=== PATIENT | male | born 1965 | race Caucasian/White ===

== ENCOUNTER → 2020-08-31 | Outpatient (CLI) | payer OTHER ==
[~2020-08-31] MED LIST: ASPI81CH33 PO; ATOR1TAB21 PO; BENAZAPRIL PO; OXYC-1 PO; ROSU40TA4 PO; VITA50005 PO
--- NOTE | 2020-08-31 16:16 | REPVR ---
PROCEDURE INFORMATION: Exam: MR Lumbar Spine Without Contrast Exam date and time: 08/31/2020 3:46 PM Age: 55 years old Clinical indication: Low back pain TECHNIQUE: Imaging protocol: Multiplanar magnetic resonance images of the lumbar spine without intravenous contrast. COMPARISON: No relevant prior studies available. FINDINGS: Vertebral body heights are maintained. Multilevel mild and Modic type 1 edematous degenerative endplate change, most pronounced at L5-S1. No MR evidence of acute lumbar spine fracture. No cord compression. No abnormal cord signal. Conus medullaris terminates at the L1 level. Paravertebral soft tissues are unremarkable. L1-L2: No significant canal or foraminal narrowing. L2-L3: No significant canal or foraminal narrowing. L3-L4: Broad-based disc bulge without significant canal or foraminal narrowing. L4-L5: Small right paracentral disc protrusion and facet hypertrophy cause moderate bilateral foraminal narrowing. No significant canal narrowing L5-S1: Central disc protrusion and facet hypertrophy cause mild canal narrowing and [id number] bilateral foraminal narrowing. IMPRESSION: Multilevel spondylotic changes of the lumbar spine, as detailed above. Electronically signed by: Waldemar Locke On 08/31/2020 16:15:55 PM
== END ==
LOC: M RAD 14:20
PROVIDERS: ATTEND Physician Assistant Medical
DX: M51.26 Other intervertebral disc displacement, lumbar region (principal)

== ENCOUNTER 2020-09-03 14:42 | Inpatient (IN) | payer OTHER ==
[~2020-09-03] VITALS: Ht 175.3 cm; Wt 96.1 kg
[~2020-09-03 14:42] MED LIST changes: -ASPI81CH33 PO; -ATOR1TAB21 PO; -ROSU40TA4 PO; -VITA50005 PO
--- NOTE | 2020-09-03 15:10 | REP ---
INDICATION: FACIAL DROOP, RIGHT SIDED WEAKNESS. COMPARISON: Comparison is a maxillofacial CT study from May 24, 2014.. TECHNIQUE: Helical scanning is acquired. 5 mm axial images were reformatted. Coronal MPR images were generated. FINDINGS: Bone window settings demonstrate intact bony calvarium. The digital care director rn views are unremarkable. There is moderate mucosal thickening affecting the ethmoid sinuses bilaterally. There is mild vascular calcification in the carotid siphons bilaterally. On soft tissue window settings, there is decreased parenchymal density in loss of gibbs-white differentiation and the left parietal lobe and the left posterior frontal lobe. There is some involvement of the temporal lobe as well,. There is low-density in the basal ganglia on the left. This is consistent with a left middle cerebral artery territory infarct. There is more well-defined area of low density in the left basal ganglia and in the periventricular white matter of the right frontal lobe consistent with a lacunar infarcts. A tiny lacunar infarct is suspected in the right basal ganglia. These findings are all new when compared with the May 24, [address] images. There is no evidence of intracranial hemorrhage. No extra-axial fluid collection is seen. No mass or midline shift is observed. IMPRESSION: There is a subacute infarct in the distribution of the left middle cerebral artery territory involving left posterior frontal, left temporal, and left parietal lobes. There are old bilateral basal ganglia lacunar infarcts. A small periventricular old infarct is seen in the right frontal lobe. Mild vascular calcification is observed. There is no evidence of intracranial hemorrhage or extra-axial fluid collection.. <Electronically signed by Gabriel Mallory > 09/03/20 [id number]
--- NOTE | 2020-09-03 15:46 | REP ---
INDICATION: CVA. COMPARISON: 01/25/2013. TECHNIQUE: Single portable AP view of the chest was performed. FINDINGS: There is mild bibasilar fibro atelectatic change with no evidence of acute infiltrate. The heart and mediastinum are unremarkable. Benign bone island is seen in the proximal left humerus. IMPRESSION: No acute pulmonary disease. <Electronically signed by Jayme Brice > 09/03/20 [id number]
[2020-09-03] MEDS ORDERED: ISOVUE-370 76% 100ML VIAL As Ordered ONE (16:44)
[2020-09-03 16:52] LABS: BASO # 0.1 10^3/uL (0.0-0.2); BASO % 0.4 % (0.0-1.0); EOS # 0.1 10^3/uL (0.0-0.5); EOS % 0.7 % (0.0-3.0); HEMATOCRIT 48.9 % (42.0-52.0); HEMOGLOBIN 16.2 g/dl (13.5-17.5); LYMPH # 2.1 10^3/uL (1.5-5.0); LYMPH % 13.4 % (24.0-44.0); MEAN CORPUSCULAR HEMOGLOBIN 31.2 pg (27.0-33.0); MEAN CORPUSCULAR HGB CONC 33.1 g/dl (32.0-36.5); MEAN CORPUSCULAR VOLUME 94.2 fl (80.0-96.0); MONO # 1.4 10^3/uL (0.0-0.8); MONO % 8.7 % (2.0-8.0); NEUTROPHILS # 12.2 10^3/uL (1.5-8.5); NEUTROPHILS % 76.4 % (36.0-66.0); PLATELET COUNT, AUTOMATED 343 10^3/uL (150-450); RED BLOOD COUNT 5.19 10^6/uL (4.30-6.10); WHITE BLOOD COUNT 15.9 10^3/uL (4.0-10.0)
[2020-09-03 17:22] LABS: CK-MB VALUE MASS < 1.0 NG/ML (<3.6); CPK CREATINE PHOSPHOKINASE 73 U/L (39-308); MB/CK RELATIVE INDEX 1.37 (< OR =4); TROPONIN I < 0.02 NG/ML (< 0.10)
[2020-09-03 17:26] LABS: INR 1.09; PARTIAL THROMBOPLASTIN TIME 30.3 SECONDS (24.2-38.5); PROTHROMBIN TIME 14.3 SECONDS (12.5-14.3)
--- NOTE | 2020-09-03 17:45 | REPVR ---
PROCEDURE INFORMATION: Exam: CT Angiography Head With Contrast, Arteriography Exam date and time: 09/03/2020 3:40 PM Age: 55 years old Clinical indication: Weakness; Additional info: Right sided facial droop; Further evaluate lmca TECHNIQUE: Imaging protocol: Computed tomography angiography of the head with contrast. Exam focused on the arteries. 3D rendering (Not supervised by radiologist): MIP and/or 3D reconstructed images were created by the technologist. Radiation optimization: All CT scans at this facility use at least one of these dose optimization techniques: automated exposure control; mA and/or kV adjustment per patient size (includes targeted exams where dose is matched to clinical indication); or iterative reconstruction. Contrast material: ISOUVE 370; Contrast volume: 75 ml; Contrast route: INTRAVENOUS (IV); COMPARISON: CT Head without contrast 09/03/2020 2:54 PM FINDINGS: ANTERIOR CIRCULATION: Right internal carotid artery: Atherosclerotic changes and mild stenoses involving the right internal carotid artery. No aneurysm. Right middle cerebral artery: No occlusion or significant stenosis. No aneurysm. Right anterior cerebral artery: See below. No occlusion. No aneurysm Left internal carotid artery: There is decreased enhancement/flow involving left internal carotid artery. Atherosclerotic changes and mild stenoses are also visualized of this vessel. Left middle cerebral artery: Occlusion of the left middle cerebral artery beginning at the M1 segment. Vascularity in the left MCA territory is poorly visualized. Left anterior cerebral artery: An azygos anterior cerebral artery is visualized. There is decreased enhancement/flow within the A1 segment of the left anterior cerebral artery. POSTERIOR CIRCULATION: Right vertebral artery: No occlusion or significant stenosis. No aneurysm. Left vertebral artery: No occlusion or significant stenosis. No aneurysm. Basilar artery: No occlusion or significant stenosis. No aneurysm. Right posterior cerebral artery: No occlusion or significant stenosis. No aneurysm. Left posterior cerebral artery: No occlusion or significant stenosis. No aneurysm. Veins: Suboptimal evaluation of the dural venous sinuses due to poor venous enhancement. Brain: Patchy hypodensity involving the left cerebral hemisphere in the MCA territory consistent with acute or subacute infarction. Additional left basal ganglia and rhoades radiata lacunar infarcts are visualized. Cerebral ventricles: No ventriculomegaly. Bones/joints: No acute fracture. Soft tissues: Unremarkable. IMPRESSION: 1. Occlusion of the left middle cerebral artery beginning at the M1 segment. Vascularity in the left MCA territory is poorly visualized. 2. There is decreased enhancement/flow involving left internal carotid artery. Atherosclerotic changes and mild stenoses are also visualized of this vessel. 3. There is decreased enhancement/flow within the A1 segment of the left anterior cerebral artery. 4. Atherosclerotic changes and mild stenoses involving the right internal carotid artery. 5. Patchy hypodensity involving the left cerebral hemisphere in the MCA territory consistent with acute or subacute infarction. Additional left basal ganglia and rhoades radiata lacunar infarcts are visualized. THIS REPORT CONTAINS FINDINGS THAT MAY BE CRITICAL TO PATIENT CARE. The findings were verbally communicated via telephone conference with PEPPER DEMARCO at 5:45 PM EDT on 09/03/2020. The findings were acknowledged and understood. Electronically signed by: Brandon Hardy On 09/03/2020 17:45:49 PM
[2020-09-03] MEDS ORDERED: ASPIRIN 81 MG CHEW TABLET PO ONE (17:50)
[2020-09-03] MEDS ORDERED: CLOPIDOGREL 75 MG TAB PO ONE (17:50)
--- NOTE | 2020-09-03 17:55 | REPVR ---
PROCEDURE INFORMATION: Exam: CT Angiography Neck With Contrast Exam date and time: 09/03/2020 3:40 PM Age: 55 years old Clinical indication: Weakness; Additional info: Right sided facial droop; Further evaluate lmca TECHNIQUE: Imaging protocol: Computed tomography angiography of the neck with contrast. 3D rendering (Not supervised by radiologist): MIP and/or 3D reconstructed images were created by the technologist. Radiation optimization: All CT scans at this facility use at least one of these dose optimization techniques: automated exposure control; mA and/or kV adjustment per patient size (includes targeted exams where dose is matched to clinical indication); or iterative reconstruction. Contrast material: ISOVUE 370; Contrast volume: 75 ml; Contrast route: INTRAVENOUS (IV); COMPARISON: No relevant prior studies available. FINDINGS: Right common carotid artery: Artifact limits evaluation of the proximal right common carotid artery. No significant stenosis or occlusion of the remaining right common carotid artery. Right internal carotid artery: Atherosclerosis and approximately 50% stenosis of the proximal right internal carotid artery. Distal to the carotid bulb, there is less than 50% stenosis. Right external carotid artery: No occlusion or significant stenosis. Right vertebral artery: Artifact obscures the V1 segment of the right vertebral artery flow-limiting pathology cannot be excluded. The remaining right vertebral artery is patent. Left common carotid artery: Artifact limits evaluation of the proximal left common carotid artery, with the mid left common carotid artery being obscured. Flow-limiting pathology cannot be excluded. Left internal carotid artery: Atherosclerosis and approximately 50% stenosis of the proximal left internal carotid artery. There is mild luminal narrowing of the remaining extracranial left internal carotid artery. Left external carotid artery: No occlusion or significant stenosis. Left vertebral artery: Artifact limits evaluation of V1 segment of the left vertebral artery, without occlusion. No significant stenosis or occlusion of the remaining left vertebral artery. Subclavian arteries: Venous enhancement and artifact limit evaluation of the left subclavian artery. Artifact limits evaluation of the right subclavian artery, without occlusion as visualized. Oropharynx: Mild asymmetric prominence of the right palatine tonsil. Larynx: There is decreased aeration of the bilateral pyriform sinuses and valleculae. Thyroid: Artifact limits evaluation of the left thyroid lobe. Bones/joints: Hypertrophic degenerative changes are noted involving the spine. There is slight reversal of the lordotic curvature of the cervical spine. Soft tissues: No significant soft tissue swelling. IMPRESSION: 1. Atherosclerosis and approximately 50% stenosis of the proximal right internal carotid artery. Distal to the carotid bulb, there is less than 50% stenosis. 2. Atherosclerosis and approximately 50% stenosis of the proximal left internal carotid artery. There is mild luminal narrowing of the remaining extracranial left internal carotid artery. 3. Artifact limits evaluation of the proximal left common carotid artery, with the mid left common carotid artery being obscured. Flow-limiting pathology cannot be excluded. 4. Mild asymmetric prominence of the right palatine tonsil. Clinical correlation recommended. 5. Additional findings described above. REFERENCES: NASCET CRITERIA. The degree of internal carotid artery stenosis is based on NASCET criteria. Normal is no stenosis. Mild is less than 50% stenosis. Moderate is 50-69% stenosis. Severe is 70% to 99% stenosis. Total occlusion is no detectable patent lumen. Electronically signed by: Brandon Hardy On 09/03/2020 17:54:49 PM
[2020-09-03] MEDS ORDERED: ASPIRIN 325 MG TAB XX ONE (18:35)
[2020-09-03] MEDS ORDERED: NS 500 ML IV ONE (18:35)
[2020-09-03] MEDS ORDERED: ASPIRIN 300 MG SUPP PR ONE (19:05)
[2020-09-03] MEDS ORDERED: VITA50005 PO (19:35)
[2020-09-03] MEDS ORDERED: ROSU40TA4 PO (19:35)
[2020-09-03 20:43] LABS: NT-PRO BNP 38 PG/ML (<125)
--- NOTE | 2020-09-03 20:45 | IPNPDOC ---
Text Note Date of Service The patient was seen on 09/03/20. NOTE time of service 735pm is a 55 yr old w a hx of DLP & non-compliance w medications & THC use who presented w c/o R facial droop, dysphagia and word finding difficulties; he was last noted to be well about 24H ago; he will be admitted for management of acute L MCA stroke and SIRS. Rest per 's H&P VS,Fishbone, I+O VS, Sebastiane, I+O Laboratory Tests 09/03/20 16:24 Vital Signs Date Time Temp Pulse Resp B/P (MAP) Pulse Ox O2 Delivery O2 Flow Rate FiO2 09/03/20 18:08 97.7 77 16 125/75 (92) 100 Room Air DAXA POLLARD MD September 03, 2020 20:45
[2020-09-03] MEDS: ATORVASTATIN 20 MG TAB PO SCH (21:00)
--- NOTE | 2020-09-03 21:34 | HPEPDOC ---
[facility] Medical History & Physical Date of Admission September 03, 2020 Date of Service: September 03, 2020 Attending Physician: DAXA POLLARD MD History and Physical CHIEF COMPLAINT: Right-sided weakness, slurring of speech, drooping of the mouth towards the right side. HISTORY OF PRESENT ILLNESS: Patient is a 55-year-old male with a past medical history of hyperlipidemia , marijuana use and vitamin D deficiency was brought to the emergency department by his son when he noticed the patient to have worsening slurring of speech, right-sided facial droop, word finding difficulty and overall weakness on the right side of the body. The son is present in the room with the patient, and as the patient is having difficulty talking, most of the history was taken from the son and confirmed by the patient himself. The patient was apparently all right 2 days ago when he started developing difficulty to speak which got worse and progressed with additional symptoms appearing including right facial droop, and right-sided weakness which prompted the son to bring him to the ED. He states he was not doing any particular activity, and all this happened at rest. He denies any vision changes, any loss of bladder or bowel control, double vision, headache, seizures, dizziness, chest pain, shortness of breath, trauma, difficulty swallowing or fevers. Patient says that he has had similar symptoms happened in the past but they completely resolved and he attributed them to his heavy marijuana smoking. CT head was done which ruled out hemorrhagic stroke. Patient's CT the demonstrates a total occlusion of middle cerebral artery also explaining the patient's symptoms making it an ischemic stroke. He was given 2 doses of aspirin and 1 dose of Plavix in the ED and the patient was admitted for further stroke workup. PAST MEDICAL HISTORY: 1. Hyperlipidemia. 2. Vitamin D deficiency. 3. Right lower extremity fracture. PAST SURGICAL HISTORY: Patient cannot recall. SOCIAL HISTORY: Marital status: . Resides in: House Tobacco use: Former smoker for 30 years about one pack per day. Quit 4 years ago ETOH: Occasional Illicit drug use: Patient smokes marijuana. FAMILY HISTORY: Father: Unknown, Mother: Unknown, Siblings: Unknown, alive Children: Asthma, alive and well. Hereditary Diseases: None Unexpected deaths due to medical reasons: Maternal uncle has a history of stroke, recently due to unknown reasons. ALLERGIES: Please see below. REVIEW OF SYSTEMS: CONSTITUTIONAL: No history of unintentional weight loss, fevers, chills, night sweats. HEENT: No runny nose, sore throat, ear pain. CARDIOVASCULAR: No chest pain, PND, orthopnea. RESPIRATORY: No shortness of breath/cough. GASTROINTESTINAL: No constipation/diarrhea/bloating. GENITOURINARY: No burning urination, increased frequency of urination. SKIN: No rashes, bleeding, bruising. MUSCULOSKELETAL: no joint pains/stiffness. NEUROLOGICAL: No weakness, paresthesias, numbness. PSYCHIATRIC: No sad mood or anxiety. ENDOCRINE: No polyphagia/ polydipsia. HOME MEDICATIONS: Please see below. PHYSICAL EXAMINATION: VITAL SIGNS: Temperature knee 98 point 4, pulse 111, respiratory rate 20, blood pressure 151/84, pulse oximetry 95 % on room air. GENERAL APPEARANCE: Patient looks nontoxic appearing, not in any acute distress. HEENT: Atraumatic, normocephalic, moist mucous membranes, no scleral icterus, no conjunctival pallor, PERRLA, EOMI. Patient has a right uvular deviation, tongue slightly moves to the right on protrusion. FACE: Patient has a mild right-sided facial droop. Intact sensations bilaterally over the face. CARDIOVASCULAR: S1-S2 heard, normal rate and rhythm, no murmurs appreciated. LUNGS: Clear to auscultation bilaterally, no wheezing, rhonchi. ABDOMEN: Obese abdomen, nontender, no hernias, no organomegaly. Bowel movements hyperactive. MUSCULOSKELETAL: No joint stiffness, swelling, deformity. EXTREMITIES: No edema, good volume pulses. No rashes, no bleeding or bruising. NEUROLOGICAL: Cranial nerves VII deficits noted. Patient's right upper extremity motor strength equals 4/5. Sensations intact. Patient's right lower extremity motor strength equals 4/5. Sensations intact PSYCHIATRIC: Normal mood, dull affect. LABORATORY DATA: See below. IMAGING: CT head done on 09/03/2020:There is a subacute infarct in the distribution of the left middle cerebral artery territory involving left posterior frontal, left temporal, and left parietal lobes. There are old bilateral basal ganglia lacunar infarcts. A small periventricular old infarct is seen in the right frontal lobe. Mild vascular calcification is observed. There is no evidence of intracranial hemorrhage or extra-axial fluid collection CT angiography done on 09/03/2020:IMPRESSION: 1. Occlusion of the left middle cerebral artery beginning at the M1 segment. Vascularity in the left MCA territory is poorly visualized. 2. There is decreased enhancement/flow involving left internal carotid artery. Atherosclerotic changes and mild stenoses are also visualized of this vessel. 3. There is decreased enhancement/flow within the A1 segment of the left anterior cerebral artery. 4. Atherosclerotic changes and mild stenoses involving the right internal Neck CTA done on 09/03/2020:IMPRESSION: 1. Atherosclerosis and approximately 50% stenosis of the proximal right internal carotid artery. Distal to the carotid bulb, there is less than 50% stenosis. 2. Atherosclerosis and approximately 50% stenosis of the proximal left internal carotid artery. There is mild luminal narrowing of the remaining extracranial left internal carotid artery. 3. Artifact limits evaluation of the proximal left common carotid artery, with the mid left common carotid artery being obscured. Flow-limiting pathology cannot be excluded. 4. Mild asymmetric prominence of the right palatine tonsil. Clinical correlation recommended. MICROBIOLOGY: Please see below. ASSESSMENT AND PLAN: Patient is a 55-year-old male with a past medical history of hyperlipidemia and vitamin D deficiency was brought to the emergency department by his son when he noticed the patient to have worsening slurring of speech, right-sided facial droop, word finding difficulty and overall weakness on the right side of the body found to have, hypercholesterolemia and hyper lipidemia , left middle cerebral artery occlusion on CT angiography concerning for, . 1. Ischemic Stroke (involving the left middle cerebral artery) most likely secondary to hyperlipidemia with the patient being noncompliant with medication , hypercoagulable disorder: -Patient was admitted to PCU with continuous telemetry . -Patient was given aspirin rectally and orally with a dose of Plavix in the ED. -Neuro checks every 4 hours. -Vitals to check as per standard of care. -Patient kept on fall precautions, nothing by mouth and an ST evaluation was ordered. -Patient was started on 40 mg atorvastatin twice a day. -A full coagulation profile was ordered, TSH was ordered-results pending. -Antihypertensives were stopped. -Allowing for permissive hypertension. -Neuro (Dr. Pacheco) was consulted- the recommended undergoing multiple coagulation profile, and MRI brain and MRA neck. - 2. Hyperlipidemia secondary to atherosclerotic disease: -A lipid profile was ordered. -Patient started on atorvastatin 40 mg by mouth daily. 3. Vitamin D deficiency: -We're holding patient's vitamin D from home. DVT prophylaxis: Patient will start on 5000 units of heparin every 8 hours subcutaneously. DISPOSITION: Patient will require full workup and will be watched for at least one hospital night. Vital Signs Vital Signs Date Time Temp Pulse Resp B/P (MAP) Pulse Ox O2 Delivery O2 Flow Rate FiO2 09/03/20 18:08 97.7 77 16 125/75 (92) 100 Room Air Laboratory Data Labs 24H Laboratory Tests 2 09/03/20 16:24: Immature Granulocyte % (Auto) 0.4, Neutrophils (%) (Auto) 76.4H, Lymphocytes (%) (Auto) 13.4L, Monocytes (%) (Auto) 8.7H, Eosinophils (%) (Auto) 0.7, Basophils (%) (Auto) 0.4, Neutrophils # (Auto) 12.2H, Lymphocytes # (Auto) 2.1, Monocytes # (Auto) 1.4H, Eosinophils # (Auto) 0.1, Basophils # (Auto) 0.1, Nucleated Red Blood Cells % (auto) 0.0, Prothrombin Time 14.3H, Prothromb Time International Ratio 1.09, Activated Partial Thromboplast Time 30.3, Total Creatine Kinase 73, Creatine Kinase MB < 1.0, Creatine Kinase MB Relative Index 1.37, Troponin I < 0.02 09/03/20 16:26: POC Glucose (Misc Panel) 94, POC Sodium (Misc Panel) 142, POC Potassium (Misc Panel) 3.9, POC Chloride (Misc Panel) 105, POC Total CO2 (Misc Panel) 25.0, POC Blood Urea Nitrogen (Misc Panel 15, POC Ionized Calcium (Misc Panel) 4.8, POC Creatinine (Misc Panel) 1.1, POC Hematocrit (Misc Panel) 51.0 09/03/20 20:09: CBC/BMP Laboratory Tests 09/03/20 16:24 Microbiology Microbiology 09/03/20 Respiratory Virus Panel (PCR) ([facility]), Received Pending Home Medications Scheduled Aspirin (Aspirin) 81 Mg Tab.chew, 81 MG PO DAILY for pain Atorvastatin Calcium (Atorvastatin Calcium) 20 Mg Tablet, 80 MG PO QHS Ergocalciferol (Vitamin D2) (Vitamin D2) 50,000 Units Cap, 50,000 UNITS PO 1XWK Allergies Coded Allergies: No Known Allergies (Unverified , 3/9/16) A-FIB/CHADSVASC A-FIB History Current/History of A-Fib/PAF?: No Current PO Anticoag Therapy: No Age/Risk Factor Scoring CHADSVASC: CHADSVASC Response (Comments) Value Age Risk Factor Age < 65 years old 0 Gender Risk Factor Male 0 Hx of CHF No 0 Hx of HTN No 0 Hx of Stroke/TIA/or VTE No 0 Hx of Diabetes No 0 Hx of Vascular Disease No 0 Total 0 Treatment Treatment ordered: NONE Reason Anticoagulant not given: Not indicated/[id number] GME ATTESTATION GME ATTESTATION My faculty preceptor for this patient encounter was physically present during the encounter and was fully available. All aspects of the patient interview, examination, medical decision making process, and medical care plan development were reviewed and approved by the faculty preceptor. The faculty preceptor is aware and concurs with the plan as stated in the body of this note and will attest to such by his/her cosignature. ATTENDING NOTE time of service 735pm is a 55 yr old w a hx of DLP & non-compliance w medications & THC use who presented w c/o R facial droop, dysphagia and word finding difficulties; he was last noted to be well about 24H ago; he will be admitted for management of acute L MCA stroke and SIRS. Rest per 's H&P [place] MD September 03, 2020 20:55 DAXA POLLARD MD September 05, 2020 20:15
[2020-09-03 21:51] LABS: ALBUMIN 4.2 GM/DL (3.2-5.2); ALT/SGPT 18 U/L (12-78); BILIRUBIN,TOTAL 0.7 MG/DL (0.2-1.0); CHOLESTEROL LEVEL 297 MG/DL (<200); CHOLESTEROL RISK RATIO 9.281 (<5); HDL CHOLESTEROL 32 MG/DL (>40); LDL CHOLESTEROL 230 MG/DL (<100); NON-HDL-C 265 MG/DL; THYROID STIMULATING HORMONE 0.523 uIU/ML (0.358-3.740); TOTAL PROTEIN 8.1 GM/DL (6.4-8.2); TRIGLYCERIDES LEVEL 174 MG/DL (<150)
[2020-09-03 22:10] VITALS: BP 135/87
[2020-09-03 22:15] VITALS: O2SAT 97
[2020-09-03 22:17] LABS: BLOOD UREA NITROGEN 14 MG/DL (7-18); CALCIUM LEVEL 9.2 MG/DL (8.5-10.1); CARBON DIOXIDE LEVEL 25 MEQ/L (21-32); CHLORIDE LEVEL 108 MEQ/L (98-107); CREATININE FOR GFR 1.04 MG/DL (0.70-1.30); GLOMERULAR FILTRATION RATE > 60.0 (>56); GLUCOSE, FASTING 83 MG/DL (70-100); SODIUM LEVEL 140 MEQ/L (136-145)
--- NOTE | 2020-09-03 22:37 | REPVR ---
PROCEDURE INFORMATION: Exam: MR Head Without Contrast Exam date and time: 09/03/2020 10:05 PM Age: 55 years old Clinical indication: Weakness, extremity; Bilateral; Additional info: Stroke TECHNIQUE: Imaging protocol: MR of the head without contrast. COMPARISON: CT Head without contrast 09/03/2020 2:54 PM FINDINGS: Brain: Multiple foci/areas of diffusion hyperintensity are identified within the left cerebral hemisphere predominantly in the MCA territory. This involves the left frontal, parietal, occipital, and temporal lobes as well as the insula and basal ganglia. These areas are heterogeneous in signal intensity on the ADC trace sequence. These findings are consistent with acute or subacute infarcts. T1 hyperintensity is identified involving the left frontal, parietal, occipital and temporal lobes, with patchy areas of mild magnetic susceptibility. This likely represents cortical laminar necrosis. Subacute hemorrhage is within the differential. Additional T1 hyperintensity is identified within the left basal ganglia with minimal magnetic susceptibility. A small chronic lacunar infarct is identified within the right basal ganglia. A tiny focus of T2 hyperintensity is noted within the right thalamus, likely representing chronic ischemic change. A chronic lacunar infarct is seen within the left rhoades radiata. There are scattered additional foci of FLAIR hyperintensity within the cerebral white matter. There is no mass effect or restricted diffusion associated with these foci. This white matter disease is nonspecific as to etiology. Possible etiologies include chronic small vessel ischemic disease, foci of demyelination, post-traumatic change, and migraine headaches, as well as additional infectious, inflammatory and autoimmune etiologies. Cerebral ventricles: Mild age-appropriate prominence of the ventricles and sulci. Bones/joints: There is diffuse nonspecific T1 hypointensity of the skull. This can be associated with red marrow reconversion and marrow hyperplasia, although additional pathology cannot be excluded. Paranasal sinuses: Mucosal thickening of ethmoid air cells bilaterally, as well as the bilateral sphenoid sinuses and maxillary sinuses. Mild mucosal thickening of the bilateral frontal sinuses. Mastoid air cells: No mastoid effusion. Orbital cavity: Unremarkable. Soft tissues: Unremarkable, as visualized. IMPRESSION: 1. Multiple foci/areas of diffusion hyperintensity are identified within the left cerebral hemisphere, predominantly in the MCA territory. These findings are consistent with acute or subacute infarcts. 2. T1 hyperintensity is identified involving the left frontal, parietal, occipital and temporal lobes, likely represents cortical laminar necrosis. Subacute hemorrhage is within the differential, without acute hemorrhage on recent head CT images. Additional T1 hyperintensity is identified within the left basal ganglia with minimal magnetic susceptibility. 3. A small chronic lacunar infarct is identified within the right basal ganglia. A tiny focus of T2 hyperintensity is noted within the right thalamus, likely representing chronic ischemic change. A chronic lacunar infarct is seen within the left rhoades radiata. 4. There are scattered additional foci of FLAIR hyperintensity within the cerebral white matter. This white matter disease is nonspecific as to etiology, as detailed above. 5. Paranasal sinus disease. Electronically signed by: Brandon Hardy On 09/03/2020 22:36:32 PM
[2020-09-03] MEDS: HEPARIN SOD (PORCINE) 5000UNITS/ML 1ML VIAL/SYRINGE SC SCH (22:47)
--- NOTE | 2020-09-03 22:47 | REPVR ---
PROCEDURE INFORMATION: Exam: MRA Head Without Contrast; Arteriography Exam date and time: 09/03/2020 10:05 PM Age: 55 years old Clinical indication: Weakness; Additional info: Stroke TECHNIQUE: Imaging protocol: Magnetic resonance angiography head without contrast. Exam focused on the arteries. COMPARISON: CT ANGIO HEAD 09/03/2020 5:13 PM FINDINGS: ANTERIOR CIRCULATION: Right internal carotid artery: Intracranial segment is patent with no significant stenosis. No aneurysm. Right middle cerebral artery: No occlusion or significant stenosis. No aneurysm. Right anterior cerebral artery: No occlusion or significant stenosis. No aneurysm. An azygos anterior cerebral artery is identified. Left internal carotid artery: Mild stenoses of the left internal carotid artery. No aneurysm. Left middle cerebral artery: Nonvisualization of the left middle cerebral artery, consistent with occlusion. Left anterior cerebral artery: Stenoses are identified of the A1 segment of the left anterior cerebral artery, which is up to severe in degree. POSTERIOR CIRCULATION: Right vertebral artery: No occlusion or significant stenosis. No aneurysm. Left vertebral artery: No occlusion or significant stenosis. No aneurysm. Basilar artery: No occlusion or significant stenosis. No aneurysm. Right posterior cerebral artery: No occlusion or significant stenosis. No aneurysm. Left posterior cerebral artery: No occlusion or significant stenosis. No aneurysm. IMPRESSION: 1. Occlusion of the left middle cerebral artery. 2. Mild stenoses of the left internal carotid artery. 3. Stenoses are identified of the A1 segment of the left anterior cerebral artery, which is up to severe in degree. 4. Additional findings described above. THIS REPORT CONTAINS FINDINGS THAT MAY BE CRITICAL TO PATIENT CARE. The findings were verbally communicated via telephone conference with Dr Jennings at 10:38 PM EDT on 09/03/2020. The findings were acknowledged and understood. Electronically signed by: Brandon Hardy On 09/03/2020 22:47:03 PM
[2020-09-03 22:59] LABS: AMPHETAMINES LEVEL URINE NEGATIVE (NEGATIVE); BARBITURATES URINE NEGATIVE (NEGATIVE); BENZODIAZEPINES URINE NEGATIVE (NEGATIVE); CANNABINOIDS URINE POSITIVE (NEGATIVE); COCAINE METABOLITE URINE NEGATIVE (NEGATIVE); METHADONE URINE NEGATIVE (NEGATIVE); OPIATES URINE NEGATIVE (NEGATIVE); PHENCYCLIDINE URINE NEGATIVE (NEGATIVE)
--- NOTE | 2020-09-03 22:59 | REPVR ---
PROCEDURE INFORMATION: Exam: MRA Neck Without Contrast Exam date and time: 09/03/2020 10:05 PM Age: 55 years old Clinical indication: Weakness; Additional info: Stroke TECHNIQUE: Imaging protocol: Magnetic resonance angiography of the neck without contrast. COMPARISON: CT ANGIO NECK 09/03/2020 5:13 PM FINDINGS: Right common carotid artery: No significant stenosis or occlusion of the distal right common carotid artery. Artifact limits evaluation of the remaining right common carotid artery, without occlusion. Right internal carotid artery: Approximately 50% stenosis of the proximal right internal carotid artery. Right external carotid artery: No significant stenosis. No occlusion. Right vertebral artery: Moderate to severe stenoses at the origins of the bilateral vertebral arteries. Artifact can contribute to this appearance. Left common carotid artery: No significant stenosis or occlusion of the distal left common carotid artery. Proximally, this vessel is out of the field of view of this study. Artifact limits evaluation of the remaining left common carotid artery, without occlusion. Left internal carotid artery: Less than 50% stenosis of the proximal left internal carotid artery. Artifact limits evaluation of the proximal left internal carotid artery. Left external carotid artery: No significant stenosis. No occlusion. Left vertebral artery: See above. IMPRESSION: 1. Approximately 50% stenosis of the proximal right internal carotid artery. 2. Less than 50% stenosis of the proximal left internal carotid artery. 3. Moderate to severe stenoses at the origins of the bilateral vertebral arteries. Artifact can contribute to this appearance. 4. Additional findings described above. REFERENCES: NASCET CRITERIA. The degree of internal carotid artery stenosis is based on NASCET criteria. Normal is no stenosis. Mild is less than 50% stenosis. Moderate is 50-69% stenosis. Severe is 70% to 99% stenosis. Total occlusion is no detectable patent lumen. Electronically signed by: Brandon Hardy On 09/03/2020 22:59:03 PM
[2020-09-03 23:01] LABS: APPEARANCE, URINE MANUAL CLEAR (CLEAR); BILIRUBIN, URINE MANUAL NEGATIVE (NEGATIVE); BLOOD URINE MANUAL POSITIVE (NEGATIVE); COLOR, URINE MANUAL YELLOW (YELLOW); GLUCOSE, URINE (UA) MANUAL NEGATIVE (NEGATIVE); KETONE, URINE MANUAL 2+ mg/dL (NEGATIVE); LEUKOCYTE ESTERASE, URINE MAN TRACE (NEGATIVE); NITRITE, URINE MANUAL NEGATIVE (NEGATIVE); PROTEIN, URINE MANUAL NEGATIVE (NEGATIVE); UROBILINOGEN, URINE MANUAL NORMAL (NORMAL)
[2020-09-04] VITALS: BP 121/64; O2SAT 97
[2020-09-04 00:13] LABS: BACTERIA, URINE NONE SEEN; HYALINE CAST, URINE NONE SEEN /lpf (0-1); SQUAMOUS EPITHELIAL CELL URINE NONE SEEN /hpf (SMALL AMT)
[2020-09-04 00:14] LABS: AMORPHOUS SEDIMENT, URINE SMALL AMOUNT (NEGATIVE); MUCUS, URINE MOD AMOUNT (NEGATIVE)
[2020-09-04 04:00] VITALS: BP 133/70; O2SAT 97
[2020-09-04] MEDS: HEPARIN SOD (PORCINE) 5000UNITS/ML 1ML VIAL/SYRINGE SC SCH ×3 (05:15→21:44)
[2020-09-04 05:48] LABS: HEMATOCRIT 44.5 % (42.0-52.0); HEMOGLOBIN 14.9 g/dl (13.5-17.5); MEAN CORPUSCULAR HEMOGLOBIN 31.6 pg (27.0-33.0); MEAN CORPUSCULAR HGB CONC 33.5 g/dl (32.0-36.5); MEAN CORPUSCULAR VOLUME 94.5 fl (80.0-96.0); PLATELET COUNT, AUTOMATED 295 10^3/uL (150-450); RED BLOOD COUNT 4.71 10^6/uL (4.30-6.10); WHITE BLOOD COUNT 11.2 10^3/uL (4.0-10.0)
--- NOTE | 2020-09-04 05:57 | ECGEPIP ---
[facility] - ED Test Date: 2020-09-03 Pat Name: LEVON JAVIER Department: Room: - Gender: Male [employer] Artist: BREANNA : 1965 Requested By: PEPPER GARCIA Order Number: [id number] Reading MD: Asim Lam Measurements Intervals [place] Rate: 81 P: 57 AL: 166 QRS: 71 QRSD: 94 T: 69 QT: 384 QTc: 446 Interpretive Statements Normal sinus rhythm NO PRIORS FOR COMPARISON Electronically Signed on 09-04-2020 5:57:06 EDT by Asim Lam
[2020-09-04 06:03] LABS: HEMOGLOBIN A1c 5.5 %
[2020-09-04 06:21] LABS: ALBUMIN 3.8 GM/DL (3.2-5.2); ALT/SGPT 12 U/L (12-78); BILIRUBIN,TOTAL 0.9 MG/DL (0.2-1.0); BLOOD UREA NITROGEN 12 MG/DL (7-18); CALCIUM LEVEL 8.2 MG/DL (8.5-10.1); CARBON DIOXIDE LEVEL 23 MEQ/L (21-32); CHLORIDE LEVEL 109 MEQ/L (98-107); CREATININE FOR GFR 0.82 MG/DL (0.70-1.30); GLOMERULAR FILTRATION RATE > 60.0 (>56); GLUCOSE, FASTING 90 MG/DL (70-100); POTASSIUM SERUM 3.5 MEQ/L (3.5-5.1); SODIUM LEVEL 140 MEQ/L (136-145); TOTAL PROTEIN 7.5 GM/DL (6.4-8.2)
[2020-09-04 08:00] VITALS: BP 132/80
--- NOTE | 2020-09-04 11:13 | ECHO ---
DATE OF PROCEDURE: 09/03/2020 Age: 55 Gender: Male Height: 173 cm Weight: 90 kg REFERRING PHYSICIAN: Blu Ray NP INDICATION: Stroke. MEASUREMENTS: IVS 1.0 cm LV 5.2 cm LVPW 1.2 cm LA 3.6 cm Aorta 3.2 cm RV 3.4 cm IVC 1.8 cm Mitral E wave velocity 60 cm/s Mitral A wave 55 cm/s E prime septal 6.9 cm/s E prime lateral 11.5 cm/s FINDINGS: This study is of fair technical quality. The patient is in sinus rhythm. Left ventricle has normal size and systolic function. Borderline LVH is noted. Overall estimated EF around 60% to 65%. Right ventricle is also normal size and systolic function. Both atria appear normal. Aortic, mitral, and tricuspid valves appear normal. Pulmonic valve was not well seen. No pericardial effusion is noted. Inferior vena cava is of normal size and appropriately collapses with inspiration indicative of likely normal central venous pressure. The aortic root, aortic arch, and visualized segment of abdominal aorta appear normal. Doppler interrogation reveals competent aortic, mitral, and tricuspid valves. Mitral inflow pattern and tissue Doppler imaging of the mitral annulus revealed likely normal diastolic function, even through tissue Doppler velocity of septal annulus is reduced. CONCLUSIONS: 1. Study is of fair technical quality, underlying sinus rhythm. 2. Normal LV size with borderline LVH and preserved LV systolic and likely also diastolic function. 3. No significant valvular disease. 4. Normal central venous pressure. 5. Unable to estimate pulmonary artery pressure, but no signs to suggest pulmonary hypertension. MTDD
--- NOTE | 2020-09-04 11:52 | DS.PDOC ---
Discharge Summary General Date of Admission September 03, 2020 at 19:28 Date of Discharge 09/06/20 Discharge Summary PROCEDURES PERFORMED DURING STAY: [None]. ADMITTING/DISCHARGE DIAGNOSES: 1. acute L MCA stroke COMPLICATIONS/CHIEF COMPLAINT: Stroke. HISTORY OF PRESENT ILLNESS: From admitting physicians note: is a 55 yr old w a hx of DLP & non-compliance w medications & THC use who presented w c/o R facial droop, dysphagia and word finding difficulties; he was last noted to be well about 24H ago; he will be admitted for management of acute L MCA stroke HOSPITAL COURSE: During his hospitalization patient was evaluated by speech therapy and passed his swallow eval. Patient's symptoms of right facial droop, dysphagia, difficulty finding words appear to have completely resolved on the second day of hospitalization. Patient worked with physical therapy and whilst he was initially cleared to go home with home PT if further evaluation reveals his son is not available to help him with stairs and PT recommended further therapy. I discussed the case with Dr. Davies, patient will follow-up at the neurology clinic at time of discharge. Echo does not reveal a cardiac source for stroke. No events on telemetry monitoring. Patient was started on high-dose statin and daily aspirin. Patient transfered for subacute rehab prior to going home. DISCHARGE MEDICATIONS: Please see below. ALLERGIES: Please see below. PHYSICAL EXAMINATION ON DISCHARGE: VITAL SIGNS: Please see below. Constitutional: Awake and alert, in no apparent distress ENT: Sclera are clear. Mucosa is moist. Respiratory: Lungs CTA bilaterally. No respiratory distress. Cardiovascular: RRR S1 and S2 are normal, no murmur Gastrointestinal: Abdomen is soft, non distended, non tender, BS present. Musculoskeletal: No lower extremity edema mental status: The patient is awake, alert, oriented to name, location, and date. Cranial nerves: Pupils are equal, round, and reactive to light. Extraocular muscles intact. Visual michaud full bilaterally. Smile is symmetrical. Tongue is midline. Intact sensation on both sides of face. Motor: At least 4+/5 in both upper and lower extremities without any drifting. Sensory: Intact to sensation bilaterally. Reflexes: Symmetrical, non-hyperreflexic. Not pathological. Coordination: Peofgn-ah-kxfa grossly intact. LABORATORY DATA: Please see below. IMAGING: Echo conclusions: CONCLUSIONS: 1. Study is of fair technical quality, underlying sinus rhythm. 2. Normal LV size with borderline LVH and preserved LV systolic and likely alsodiastolic function. 3. No significant valvular disease. 4. Normal central venous pressure. 5. Unable to estimate pulmonary artery pressure, but no signs to suggest pulmonary hypertension. CT head done on 09/03/2020:There is a subacute infarct in the distribution of the left middle cerebral artery territory involving left posterior frontal, left temporal, and left parietal lobes. There are old bilateral basal ganglia lacunar infarcts. A small periventricular old infarct is seen in the right frontal lobe. Mild vascular calcification is observed. There is no evidence of intracranial hemorrhage or extra-axial fluid collection CT angiography done on 09/03/2020:IMPRESSION: 1. Occlusion of the left middle cerebral artery beginning at the M1 segment. Vascularity in the left MCA territory is poorly visualized. 2. There is decreased enhancement/flow involving left internal carotid artery. Atherosclerotic changes and mild stenoses are also visualized of this vessel. 3. There is decreased enhancement/flow within the A1 segment of the left anterior cerebral artery. 4. Atherosclerotic changes and mild stenoses involving the right internal Neck CTA done on 09/03/2020:IMPRESSION: 1. Atherosclerosis and approximately 50% stenosis of the proximal right internal carotid artery. Distal to the carotid bulb, there is less than 50% stenosis. 2. Atherosclerosis and approximately 50% stenosis of the proximal left internal carotid artery. There is mild luminal narrowing of the remaining extracranial left internal carotid artery. 3. Artifact limits evaluation of the proximal left common carotid artery, with the mid left common carotid artery being obscured. Flow-limiting pathology cannot be excluded. 4. Mild asymmetric prominence of the right palatine tonsil. Clinical correlation recommended. PROGNOSIS: fair ACTIVITY: [As tolerated]. DIET: regular DISPOSITION: subacute rehab DISCHARGE INSTRUCTIONS: Please follow up with your primary care physician within 1 week from discharge. If you do not have one, please follow up with us to schedule an appointment. Please keep all of your follow up appointments. Please call central to book your appointments with hospital specialists. Please take all your medications as prescribed. Please call/come to Clinic or go to the Emergency Department if - Temp >101, intractable Nausea/Vomiting, Diarrhea, Mouth sores, Headaches, Altered mental s tatus, Seizures, sudden onset of swelling, bleeding, shortness of breath or chest pain. ITEMS TO FOLLOWUP ON ON OUTPATIENT: Follow-up with PCP within 5 days of discharge Follow up with your new neurology referral DISCHARGE CONDITION: [Stable]. TIME SPENT ON DISCHARGE: 45 minutes. Vital Signs/I&Os Vital Signs Date Time Temp Pulse Resp B/P (MAP) Pulse Ox O2 Delivery O2 Flow Rate FiO2 09/04/20 08:00 98.4 73 16 132/80 (97) 94 Room Air I&O- Last 24 Hours up to 6 AM 09/04/20 06:00 Intake Total 0 ml Output Total 400 ml Balance -400 ml Laboratory Data Labs 24H Laboratory Tests 2 09/03/20 16:24: Immature Granulocyte % (Auto) 0.4, Neutrophils (%) (Auto) 76.4H, Lymphocytes (%) (Auto) 13.4L, Monocytes (%) (Auto) 8.7H, Eosinophils (%) (Auto) 0.7, Basophils (%) (Auto) 0.4, Neutrophils # (Auto) 12.2H, Lymphocytes # (Auto) 2.1, Monocytes # (Auto) 1.4H, Eosinophils # (Auto) 0.1, Basophils # (Auto) 0.1, Nucleated Red Blood Cells % (auto) 0.0, Prothrombin Time 14.3H, Prothromb Time International Ratio 1.09, Activated Partial Thromboplast Time 30.3, Anion Gap 7L, Glomerular Filtration Rate > 60.0, Calcium Level 9.2, Total Bilirubin 0.7, Aspartate Amino Transf (AST/SGOT) 16, Alanine Aminotransferase (ALT/SGPT) 18, Alkaline Phosphatase 111, Total Creatine Kinase 73, Creatine Kinase MB < 1.0, Creatine Kinase MB Relative Index 1.37, Troponin I < 0.02, DX-[id number]-Type Natriuretic Peptide 38, Total Protein 8.1, Albumin 4.2, Albumin/Globulin Ratio 1.1, T riglycerides Level 174H, Total Cholesterol 297H, LDL Cholesterol 230H, Non-HDL Cholesterol (LDL + VLDL) 265, Total HDL Cholesterol 32L, Cholesterol/HDL Ratio 9.281H, Thyroid Stimulating Hormone (TSH) 0.523 09/03/20 16:26: POC Glucose (Misc Panel) 94, POC Sodium (Misc Panel) 142, POC Potassium (Misc Panel) 3.9, POC Chloride (Misc Panel) 105, POC Total CO2 (Misc Panel) 25.0, POC Blood Urea Nitrogen (Misc Panel 15, POC Ionized Calcium (Misc Panel) 4.8, POC Creatinine (Misc Panel) 1.1, POC Hematocrit (Misc Panel) 51.0 09/03/20 20:09: 09/03/20 22:00: Bedside Urine Color (LAB) YELLOW, Bedside Urine Appearance (LAB) CLEAR, Bedside Urine pH (LAB) 5.0, Bedside Urine Specific [place] (LAB 1.020, Bedside Urine Protein (LAB) NEGATIVE, Bedside Urine Glucose (UA) NEGATIVE, Bedside Urine Ketones (LAB) 2+H, Bedside Urine Blood POSITIVEH, Bedside Urine Nitrite (LAB) NEGATIVE, Bedside Urine Bilirubin (LAB) NEGATIVE, Bedside Urine Urobilinogen (LAB) NORMAL, Bedside Urine Leukocyte Esterase (L TRACEH, Urine Sediment Examination PERFORMED, Urine RBC 1-3, Urine WBC 3-5H, Urine Squamous Epithelial Cells NONE SEEN, Urine Amorphous Sediment SMALL AMOUNTH, Urine Bacteria NONE SEEN, Urine Hyaline Casts NONE SEEN, Urine Mucus MOD AMOUNTH, Urine Opiates Screen NEGATIVE, Urine Methadone Screen NEGATIVE, Urine Barbiturates Screen NEGATIVE, Urine Phencyclidine Screen NEGATIVE, Urine Amphetamines Screen NEGATIVE, Urine Benzodiazepines Screen NEGATIVE, Urine Cocaine Metabolite Screen NEGATIVE, Urine Cannabinoids Screen POSITIVEH 09/03/20 22:41: Lactic Acid Level 0.8 09/04/20 05:35: Nucleated Red Blood Cells % (auto) 0.0, Anion Gap 8, Glomerular Filtration Rate > 60.0, Estimated Mean Plasma Glucose 111H, Hemoglobin A1c 5.5, Calcium Level 8.2L, Total Bilirubin 0.9, Aspartate Amino Transf (AST/SGOT) 14, Alanine Aminotransferase (ALT/SGPT) 12, Alkaline Phosphatase 96, Total Protein 7.5, Albumin 3.8, Albumin/Globulin Ratio 1.0 CBC/BMP Laboratory Tests 09/03/20 16:24 09/04/20 05:35 Microbiology Microbiology 09/03/20 Blood Culture, Received Pending 09/03/20 Respiratory Virus Panel (PCR) (SHANE) - Final, Complete Discharge Medications Scheduled Aspirin (Aspirin) 81 Mg Tab.chew, 81 MG PO DAILY for pain Atorvastatin Calcium (Atorvastatin Calcium) 20 Mg Tablet, 80 MG PO QHS Ergocalciferol (Vitamin D2) (Vitamin D2) 50,000 Units Cap, 50,000 UNITS PO 1XWK, (Reported) Allergies Coded Allergies: No Known Allergies (Unverified , 06/27/15) RANJEET MATIAS MD September 04, 2020 11:52
[2020-09-04] MEDS ORDERED: ASPI81CH33 PO (11:54)
[2020-09-04] MEDS ORDERED: ATOR1TAB21 PO (11:54)
[2020-09-04 12:00] VITALS: BP 132/94
[2020-09-04] MEDS ORDERED: ASPIRIN 81 MG CHEW TABLET PO ONE (12:15)
[2020-09-04 16:00] VITALS: BP 149/91
[2020-09-04 20:00] VITALS: BP 133/73
[2020-09-04] MEDS: ATORVASTATIN 20 MG TAB PO SCH (21:44)
[2020-09-05 04:00] VITALS: BP 142/76
[2020-09-05 05:40] LABS: HEMATOCRIT 43.1 % (42.0-52.0); HEMOGLOBIN 14.4 g/dl (13.5-17.5); MEAN CORPUSCULAR HEMOGLOBIN 31.4 pg (27.0-33.0); MEAN CORPUSCULAR HGB CONC 33.4 g/dl (32.0-36.5); MEAN CORPUSCULAR VOLUME 93.9 fl (80.0-96.0); PLATELET COUNT, AUTOMATED 285 10^3/uL (150-450); RED BLOOD COUNT 4.59 10^6/uL (4.30-6.10); WHITE BLOOD COUNT 10.4 10^3/uL (4.0-10.0)
[2020-09-05 06:19] LABS: ALBUMIN 3.4 GM/DL (3.2-5.2); ALT/SGPT 14 U/L (12-78); BILIRUBIN,TOTAL 0.2 MG/DL (0.2-1.0); BLOOD UREA NITROGEN 15 MG/DL (7-18); CALCIUM LEVEL 8.4 MG/DL (8.5-10.1); CARBON DIOXIDE LEVEL 23 MEQ/L (21-32); CHLORIDE LEVEL 110 MEQ/L (98-107); CREATININE FOR GFR 0.79 MG/DL (0.70-1.30); GLOMERULAR FILTRATION RATE > 60.0 (>56); GLUCOSE, FASTING 89 MG/DL (70-100); POTASSIUM SERUM 3.8 MEQ/L (3.5-5.1); SODIUM LEVEL 140 MEQ/L (136-145); TOTAL PROTEIN 6.8 GM/DL (6.4-8.2)
[2020-09-05] MEDS: HEPARIN SOD (PORCINE) 5000UNITS/ML 1ML VIAL/SYRINGE SC SCH ×3 (06:24→21:00)
[2020-09-05 08:00] VITALS: BP 138/83
[2020-09-05 12:00] VITALS: BP_SYST 129; BP_SYST 140; BP_DIAS 76; BP_DIAS 77
[2020-09-05 16:00] VITALS: BP 137/73
[2020-09-05] MEDS ORDERED: SENOKOT S TAB PO PRN (19:35)
[2020-09-05] MEDS ORDERED: MIRALAX *UNIT DOSE* 17GM PACKET PO PRN (19:35)
[2020-09-05 20:00] VITALS: BP 149/85
[2020-09-05] MEDS: ATORVASTATIN 20 MG TAB PO SCH (20:59)
[2020-09-06] MEDS ORDERED: RAMELTEON 8 MG TAB (ROZEREM) PO PRN (01:00)
[2020-09-06 04:00] VITALS: BP 160/96
[2020-09-06 05:20] LABS: HEMOGLOBIN 14.2 g/dl (13.5-17.5); MEAN CORPUSCULAR HEMOGLOBIN 31.1 pg (27.0-33.0); MEAN CORPUSCULAR VOLUME 94.1 fl (80.0-96.0); PLATELET COUNT, AUTOMATED 306 10^3/uL (150-450); RED BLOOD COUNT 4.57 10^6/uL (4.30-6.10); WHITE BLOOD COUNT 9.7 10^3/uL (4.0-10.0)
[2020-09-06] MEDS: HEPARIN SOD (PORCINE) 5000UNITS/ML 1ML VIAL/SYRINGE SC SCH (05:49)
[2020-09-06 06:01] LABS: ALBUMIN 3.4 GM/DL (3.2-5.2); ALT/SGPT 16 U/L (12-78); BILIRUBIN,TOTAL 0.5 MG/DL (0.2-1.0); BLOOD UREA NITROGEN 13 MG/DL (7-18); CALCIUM LEVEL 8.6 MG/DL (8.5-10.1); CARBON DIOXIDE LEVEL 26 MEQ/L (21-32); CHLORIDE LEVEL 109 MEQ/L (98-107); GLOMERULAR FILTRATION RATE > 60.0 (>56); GLUCOSE, FASTING 91 MG/DL (70-100); POTASSIUM SERUM 4.1 MEQ/L (3.5-5.1); SODIUM LEVEL 140 MEQ/L (136-145)
[2020-09-06 07:24] VITALS: BP 125/85
--- NOTE | 2020-09-06 10:41 | IPNPDOC ---
Text Note Date of Service The patient was seen on 09/06/20. NOTE Subjective: Patient was seen and examined this morning at bedside. Patient tells me he is feeling well he has a good appetite has been having his food he just had a large bowel movement. He has no pain. He denies fevers or chills. He denies any new symptoms such as weakness or speech difficulty. There is no acute overnight events reported to me. Patient will go forward to a subacute rehabilitation before going home Objective: Constitutional: Awake and alert, in no apparent distress ENT: Sclera are clear. Mucosa is moist. Respiratory: Lungs CTA bilaterally. No respiratory distress. Cardiovascular: RRR S1 and S2 are normal, no murmur Gastrointestinal: Abdomen is soft, non distended, non tender, BS present. Musculoskeletal: No lower extremity edema mental status: The patient is awake, alert, oriented to name, location, and date. Cranial nerves: Pupils are equal, round, and reactive to light. Extraocular muscles intact. Visual michaud full bilaterally. Smile is symmetrical. Tongue is midline. Intact sensation on both sides of face. Motor: At least 4+/5 in both upper and lower extremities without any drifting. Sensory: Intact to sensation bilaterally. Reflexes: Symmetrical, non-hyperreflexic. Not pathological. Coordination: Orzbea-wz-vyzn grossly intact. Assessment/plan: #acute L MCA stroke Patient was seen today on date of discharge to subacute rehabilitation. He's been doing well he is on aspirin and statin for her stroke. He will follow up with neurology after discharge from subacute rehabilitation. Cleared for discharge today. A [facility] Hospitalist Yousuf PEDERSEN I+O Yousuf PEDERSEN I+O Laboratory Tests 09/06/20 05:01 Vital Signs Date Time Temp Pulse Resp B/P (MAP) Pulse Ox O2 Delivery O2 Flow Rate FiO2 09/06/20 07:24 97.4 62 18 125/85 (98) 95 Room Air I&O- Last 24 Hours up to 6 AM 09/06/20 06:00 Intake Total 1520 ml Output Total 0 ml Balance 1520 ml RANJEET MATIAS MD September 06, 2020 10:41
[2020-09-10 14:08] LABS: ANTI THROMBIN 3 ANTIGEN IMMUNO 96 % (72-124); ANTI THROMBIN 3 FUNCT ACTIVITY 111 % (75-135); CARDIOLIPIN IGA ANTIBODY <9 APL U/mL (0-11); CARDIOLIPIN IGG ANTIBODY <9 GPL U/mL (0-14); CARDIOLIPIN IGM ANTIBODY <9 MPL U/mL (0-12); PHOSPHOLIPIDS LEVEL 248 mg/dL (150-250); PROTEIN C FUNCTIONAL ACTIVITY 134 % (73-180); PROTEIN S FUNCTIONAL ACTIVITY 104 % (63-140)
== END 2020-09-06 12:56 | DRG 65 ==
LOC: M ED 14:42 → M ED INP 19:28 → ENRESERV 21:02 → M PCU 22:03
PROVIDERS: ADMIT Internal Medicine; ATTEND Family Medicine
DX: I63.512 Cerebral infarction due to unspecified occlusion or stenosis of left middle cerebral artery (principal); I69.359 Hemiplegia and hemiparesis following cerebral infarction affecting unspecified side; E78.5 Hyperlipidemia, unspecified; E55.9 Vitamin D deficiency, unspecified; I25.10 Atherosclerotic heart disease of native coronary artery without angina pectoris; Z91.14 Patient's other noncompliance with medication regimen; Z20.822 Contact with and (suspected) exposure to COVID-19; Z79.82 Long term (current) use of aspirin; Z79.899 Other long term (current) drug therapy; Z87.891 Personal history of nicotine dependence; R53.1 Weakness; R29.810 Facial weakness

== ENCOUNTER → 2021-05-02 | Outpatient (CLI) | payer OTHER ==
[~2021-05-02] MED LIST changes: +ASPI81CH33 PO; +ATOR1TAB21 PO; +ATOR80TA59 PO; +CLOP75TA2 PO; +ERGO500029 PO; +NEUR100C PO; +ROSU40TA4 PO
== END ==
LOC: M LABSMTC 10:21
PROVIDERS: ATTEND Anesthesiology
DX: Z01.818 Encounter for other preprocedural examination (principal); Z20.822 Contact with and (suspected) exposure to COVID-19

== ENCOUNTER 2021-05-07 10:40 | Day surgery (SDC) | payer OTHER ==
[~2021-05-07] VITALS: Ht 175.3 cm; Wt 95.0 kg
[2021-05-07] MEDS ORDERED: HYDR-4571 PO (15:18)
[2021-05-07 16:58] VITALS: BP 119/69
== END 2021-05-07 16:58 | disposition home or self-care (01) ==
LOC: M SDC 10:40
PROVIDERS: ATTEND Surgery
DX: K40.90 Unilateral inguinal hernia, without obstruction or gangrene, not specified as recurrent (principal); I10 Essential (primary) hypertension; E78.5 Hyperlipidemia, unspecified; Z86.73 Personal history of transient ischemic attack (TIA), and cerebral infarction without residual deficits; Z79.82 Long term (current) use of aspirin; F32.9 Major depressive disorder, single episode, unspecified; F12.10 Cannabis abuse, uncomplicated; Z87.891 Personal history of nicotine dependence; Z79.02 Long term (current) use of antithrombotics/antiplatelets; G47.33 Obstructive sleep apnea (adult) (pediatric)
CPT/HCPCS: 49650; C1781; J0131; J1100; J1885; J2250; J2405; J2765; J3010; S2900

== ENCOUNTER → 2022-05-28 | Outpatient (CLI) | payer OTHER ==
[~2022-05-28] MED LIST changes: +HYDR-4571 PO
== END ==
LOC: M LABSMTC 09:48
PROVIDERS: ATTEND Anesthesiology
DX: Z01.812 Encounter for preprocedural laboratory examination (principal); Z20.822 Contact with and (suspected) exposure to COVID-19

== ENCOUNTER 2022-06-02 10:47 | Day surgery (SDC) | payer OTHER ==
[~2022-06-02] VITALS: Ht 175.3 cm; Wt 106.6 kg
[~2022-06-02 10:47] MED LIST changes: +NS 1,000 ML IV ONE
[2022-06-02] MEDS ORDERED: LIDOCAINE 2% 100MG/5ML SDV (FOR ANES.) As Ordered ONE (12:37)
[2022-06-02] MEDS ORDERED: propofoL 200 MG/20 ML VIAL As Ordered ONE (12:37)
[2022-06-02 13:30] VITALS: BP 157/88
== END 2022-06-02 14:05 | disposition home or self-care (01) ==
LOC: M OPP 10:47
PROVIDERS: ATTEND Internal Medicine Gastroenterology
DX: Z12.11 Encounter for screening for malignant neoplasm of colon (principal); K64.0 First degree hemorrhoids; G47.33 Obstructive sleep apnea (adult) (pediatric); I10 Essential (primary) hypertension; E78.5 Hyperlipidemia, unspecified; Z79.02 Long term (current) use of antithrombotics/antiplatelets; Z79.82 Long term (current) use of aspirin; Z79.899 Other long term (current) drug therapy; Z88.8 Allergy status to other drugs, medicaments and biological substances; Z86.73 Personal history of transient ischemic attack (TIA), and cerebral infarction without residual deficits

== ENCOUNTER → 2022-07-14 | Outpatient (CLI) | payer OTHER ==
[~2022-07-14] MED LIST changes: -NS 1,000 ML IV ONE
== END ==
LOC: M RAD 12:59
PROVIDERS: ATTEND Physician Assistant Medical
DX: Z87.891 Personal history of nicotine dependence (principal)

== ENCOUNTER 2022-12-26 15:58 | Emergency (ER) | payer MEDICARE, OTHER ==
[~2022-12-26] VITALS: Ht 175.3 cm; Wt 103.2 kg
[2022-12-26 18:23] LABS: BASO # 0.1 10^3/uL (0.0-0.2); BASO % 0.6 % (0.0-1.0); EOS # 0.5 10^3/uL (0.0-0.5); EOS % 4.3 % (0.0-3.0); HEMATOCRIT 46.5 % (42.0-52.0); HEMOGLOBIN 15.5 g/dl (13.5-17.5); LYMPH # 2.1 10^3/uL (1.5-5.0); LYMPH % 19.7 % (24.0-44.0); MEAN CORPUSCULAR HGB CONC 33.3 g/dl (32.0-36.5); MEAN CORPUSCULAR VOLUME 96.1 fl (80.0-96.0); MONO # 0.9 10^3/uL (0.0-0.8); MONO % 8.6 % (2.0-8.0); NEUTROPHILS # 7.1 10^3/uL (1.5-8.5); NEUTROPHILS % 66.5 % (36.0-66.0); PLATELET COUNT, AUTOMATED 259 10^3/uL (150-450); RED BLOOD COUNT 4.84 10^6/uL (4.30-6.10); WHITE BLOOD COUNT 10.7 10^3/uL (4.0-10.0)
[2022-12-26 18:49] LABS: ERYTHROCYTE SEDIMENTATION RATE 6 mm/hr (0-20)
[2022-12-26 18:51] LABS: C REACTIVE PROTEIN QUANTITATIV < 0.40 MG/DL (<1.0)
[2022-12-26 18:52] LABS: BLOOD UREA NITROGEN 13 MG/DL (9-23); CALCIUM LEVEL 8.8 MG/DL (8.5-10.1); CARBON DIOXIDE LEVEL 27 MMOL/L (20-31); CHLORIDE LEVEL 109 MMOL/L (98-107); CREATININE FOR GFR 0.89 MG/DL (0.70-1.30); GLOMERULAR FILTRATION RATE > 60.0 (>56); GLUCOSE, FASTING 74 MG/DL (60-100); POTASSIUM SERUM 4.1 MMOL/L (3.5-5.1); SODIUM LEVEL 143 MMOL/L (136-145)
[2022-12-26 21:12] LABS: THYROID STIMULATING HORMONE 1.556 uIU/ML (0.55-4.78)
[2022-12-26 23:55] VITALS: BP 128/71; TEMP 98.2; O2SAT 97
== END 2022-12-26 23:33 | disposition home or self-care (01) ==
LOC: M ED 15:58
DX: R60.1 Generalized edema (principal); I10 Essential (primary) hypertension; E78.5 Hyperlipidemia, unspecified; Z86.73 Personal history of transient ischemic attack (TIA), and cerebral infarction without residual deficits